=== PATIENT | male | born 2000 | race African-American/Black ===

== ENCOUNTER 2023-07-18 19:54 | Emergency (ER) | payer MEDICAID, SELFPAY ==
[2023-07-18 19:58] VITALS: BP 156/79; PULSE 99; RESP 18; TEMP 36.8; O2SAT 97; BMI 19.0
--- NOTE | 2023-07-18 20:07 | ED.WOUNDLAC1 ---
HPI - Wound/Laceration General Chief Complaint: Wound/Laceration Stated Complaint: LAC TO L THUMB Time Seen by Provider: 07/18/23 19:59 Source: patient Mode of arrival: walk-in Limitations: no limitations History of Present Illness HPI narrative: patient states he was cutting garlic last PM about 22 hours ago. cut the tip of his left thumb thru the nail. No weakness of his thumb. States the tip feels numb. Denies any other injury. Mother believes he is overdue for tetanus. Onset (ago): hour(s) Related Data Home Medications Medication Instructions Recorded Confirmed No Known Home Medications 07/18/23 07/18/23 Allergies Allergy/AdvReac Type Severity Reaction Status Date / Time No Known Drug Allergies Allergy Verified 07/18/23 20:01 Review of Systems ROS Status of ROS 10 or more systems reviewed and unremarkable except as noted in history and below Exam Constitutional Vital Signs, click to edit/add: Last Vital Signs Temp 98.2 F 07/18/23 19:58 Pulse 99 H 07/18/23 19:58 Resp 18 07/18/23 19:58 BP 156/79 H 07/18/23 19:58 Pulse Ox 97 07/18/23 19:58 O2 Del Method Room Air 07/18/23 19:58 Common normals: no apparent distress, average body habitus, oriented x3, no limitations, healthy appearing, alert and well nourished Eye Common normals: EOMs intact bilaterally and conjunctivae normal Respiratory Common normals: normal respiratory effort, no retractions and no use of accessory muscles Cardio Common normals: regular rate, regular rhythm, S1 normal heart sound and S2 normal heart sound Extremity Other: tip left thumb with small lac that goes thru the proximal aspect of the nail and involves small port of the nail bed. mild swelling. FROM of the thumb. lac approx 6mm Neuro Common normals: oriented x3, CN's II-XII intact bilaterally, moves all extremities and no focal motor deficits Psych Appearance: grossly normal Course Vital Signs Vital signs: Vital Signs Temperature 98.2 F 07/18/23 19:58 Pulse Rate 99 H 07/18/23 19:58 Respiratory Rate 18 07/18/23 19:58 Blood Pressure 156/79 H 07/18/23 19:58 Pulse Oximetry 97 07/18/23 19:58 Oxygen Delivery Method Room Air 07/18/23 19:58 Temperature 98.2 F 07/18/23 19:58 Pulse Rate 99 H 07/18/23 19:58 Respiratory Rate 18 07/18/23 19:58 Blood Pressure 156/79 H 07/18/23 19:58 Pulse Oximetry 97 07/18/23 19:58 Oxygen Delivery Method Room Air 07/18/23 19:58 MDM - Wound/Laceration MDM Narrative Medical decision making narrative: patient present minor lac thru tip of his left thumb and proximal nail bed. Injury over 22 hours old and is starting to swelling. Mild tenderness. No discoloration. Sensation about the cut is numb. Remaining thumb sensation intact. Patient given a tetanus and also augmentin . Advised to follow up with the family doctor Discharge Plan Discharge Chief Complaint: Wound/Laceration Clinical Impression: Laceration of thumb with damage to nail Patient Disposition: Home, Self-Care Prescriptions / Home Meds: No Action No Known Home Medications Instructions: Laceration Without Closure (ED) Additional Instructions: have wound rechecked in 2-4 days Stand Alone Forms: Portal Instructions Referrals: Physician,Non-Staff, MD [Primary Care Provider] - 1 week
[2023-07-18] MEDS: AMOXICILLIN/POTASSIUM CLAV 1 TAB TABLET PO (20:48)
[2023-07-18] MEDS: ADACEL DIPH,PERTUSS(ACELL),TET VAC/PF 0.5 ML ADULT SYRINGE IM (20:48)
== END 2023-07-18 20:56 | disposition home or self-care (01) ==
PROVIDERS: Emergency Provider Internal Medicine
DX: S61.112A Laceration without foreign body of left thumb with damage to nail, initial encounter (principal); W26.0XXA Contact with knife, initial encounter; Z23 Encounter for immunization
CPT/HCPCS: 90471; 90715; 99284

== ENCOUNTER 2024-01-09 21:24 | Emergency (ER) | payer SELFPAY ==
[2024-01-09 21:26] VITALS: BP 160/84; PULSE 89; TEMP 37; O2SAT 99; BMI 20.9
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
[2024-01-09] MEDS: ONDANSETRON 4 MG RAPDIS TABLET SL (21:55)
[2024-01-09] MEDS: IBUPROFEN 600 MG TABLET PO (21:55)
[2024-01-09] MEDS: HYDROCODONE/ACET 5-325 MG TABLET 1 TAB PO (21:55)
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
[2024-01-09] MEDS: HYDROCODONE/ACET 5-325 MG TABLET 2 TAB PO (23:01)
== END 2024-01-09 23:25 | disposition home or self-care (01) ==
PROVIDERS: Emergency Provider Emergency Medicine
DX: S92.355A Nondisplaced fracture of fifth metatarsal bone, left foot, initial encounter for closed fracture (principal); S92.255A Nondisplaced fracture of navicular [scaphoid] of left foot, initial encounter for closed fracture; S62.002A Unspecified fracture of navicular [scaphoid] bone of left wrist, initial encounter for closed fracture; V19.88XA Pedal cyclist (driver) (passenger) injured in other specified transport accidents, initial encounter
CPT/HCPCS: 29515; 73110; 73630; 99284

== ENCOUNTER 2024-09-24 01:47 | Emergency (ER) | payer SELFPAY ==
[2024-09-24 01:48] VITALS: BP 107/91; PULSE 87; TEMP 37.5; O2SAT 98; BMI 21.1
--- NOTE | 2024-09-24 01:51 | XR_ITS ---
The [address] [address] Patient Name: SHANTAL BRUMFIELD III MRN: [id number] date: 2000 Sex: M Assigned Patient Location: ED.MAIN Current Patient Location: Accession/Order Number: [id number] Exam Date: 09/24/2024 01:53 Report Date: 09/24/2024 03:47 At the request of: JUAN DANIEL LEIVA Procedure: XR hand RT min 3V EXAM: XR hand RT min 3V HISTORY: Laceration over fourth MCP, rule out foreign body COMPARISON: None. TECHNIQUE: 3 view right hand. FINDINGS: No retained opaque foreign body identified. No focal soft tissue or significant air soft tissues. Normal osseous structures. Normal mineralization. No destructive changes. No fractures. Normal joints at hand and wrist. XR/XR hand RT min 3V IMPRESSION: No retained opaque foreign body. Electronically authenticated by: KAYY ADAME Date: 09/24/2024 03:47
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
[2024-09-24] MEDS: ADACEL DIPH,PERTUSS(ACELL),TET VAC/PF 0.5 ML ADULT SYRINGE IM (02:18)
[2024-09-24] MEDS: LIDOCAINE HCL 1% 100 MG/10 ML MDV INJ (02:23)
== END 2024-09-24 02:32 | disposition home or self-care (01) ==
PROVIDERS: Emergency Provider Emergency Medicine
DX: S61.411A Laceration without foreign body of right hand, initial encounter (principal); Y04.2XXA Assault by strike against or bumped into by another person, initial encounter; Z23 Encounter for immunization
CPT/HCPCS: 12001; 73130; 90471; 90715; 99284